=== PATIENT | male | born 2005 | race Caucasian/White ===

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

== ENCOUNTER 2025-04-02 09:37 | Outpatient (REF) | payer MEDICAID, SELFPAY ==
--- OUTSIDE RECORDS SUMMARY | 2025-04-02 09:59 | XMS_ITS | Encounter Summary ---
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 Name Role Phone Eboni Gary Primary Care Provider [phone] Encounter Details Date Type Department Care Team (Late st Contact Info) Description 12/13/2022 Orders Only [facility] [address] [place] [address] Jania Boo LPN Social History Tobacco Use Types Packs/Day Years Used Date Smoking Tobacco: Never Assessed Sex and Gender Information Value Date Recorded Sex Assigned at Male 09/03/2022 10:19 AM EDT Legal Sex Male 10:19 AM EDT Gender Identity Male 09/03/2022 10:19 AM EDT Sexual Orientation Straight 09/03/2022 10 :19 AM EDT documented as of this encounter Plan of Treatment Upcoming Encounters Date Type Department Care Team (Late st Contact Info) Description 04/26/2025 8:00 AM EDT Office Visit [facility] [address] [place] [address] Simona Gandhi documented as of this encounter Visit Diagnoses Not on filedocumented in this encounter Care Teams Auto Body Repair Teacher Relationship Specialty Start Date End Date Eboni Gary ANP [address] [place] [address] PCP - General Family Medicine 02/16/22 documented as of this encounter
[2025-04-05 12:33] LABS: TS Negative Control Passed; TS Panel A 0; TS Panel B 0; TS Positive Control Passed; TSpotTB Negative (Negative)
== END 2025-04-02 09:38 | disposition home or self-care (01) ==
LOC: HO.HHCL 09:37
PROVIDERS: Visit Provider Nurse Practitioner Primary Care
DX: Z11.1 Encounter for screening for respiratory tuberculosis (principal)
CPT/HCPCS: 36415; 86481